=== PATIENT | female | born 1960 | race Caucasian/White ===

== ENCOUNTER 2017-06-29 05:42 | Day surgery (SDC) | payer OTHER ==
[2017-06-29] MEDS ORDERED: LIDOCAINE 4% SOLUTION 50 ML BTL (07:21)
[2017-06-29] MEDS ORDERED: MIDAZOLAM 1 MG/ML 2 ML INJ ×2 (08:35)
[2017-06-29] MEDS ORDERED: FENTAnyl 50 MCG/ML VIAL (08:35)
== END 2017-06-29 10:11 | disposition home or self-care (01) ==
LOC: GIL 05:42
DX: K21.0 Gastro-esophageal reflux disease with esophagitis (principal); K29.70 Gastritis, unspecified, without bleeding; K57.30 Diverticulosis of large intestine without perforation or abscess without bleeding; K64.4 Residual hemorrhoidal skin tags
CPT/HCPCS: 43239; 82962; 88305